=== PATIENT | female | born 1960 | race Caucasian/White ===

== ENCOUNTER 2017-01-14 03:22 | Emergency (ER) | payer BC ==
--- NOTE | ~2017-01-14 | CR21 ---
[facility] A Service of [facility] RADIOLOGY TEXT RESULTS PATIENT: ALEX DAMICO LOCATION: [facility] : 56 UNIT #: [id number] AGE: [address]: Jamison Joshua MD SEX: F ORDER DR: [id number] [facility] [address] [place], [place] [address] [id number] E MR#: [id number] Acc #: [id number] NAME: ALEX DAMICO : 1960 SEX: F STUDY DATE/TIME: 01/14/2017 2:43 UNIT: [facility] ROOM: STUDY DESCRIPTION: CR Ankle Min 3 Views Rt Attending Physician: Jamison Joshua M.D. Ordering Physician: Jamison Joshua M.D. Primary Care Physician: Primary Care Physician No MEDICAL IMAGING REPORT This report is preliminary unless electronic signature is present EXAM Right ankle INDICATIONS Fall with ankle injury today. FINDINGS 3 views of the right ankle were obtained. There is marked lateral soft tissue swelling and I believe there is a subtle transverse fracture through the distal fibula about 1 cm proximal to the end of the bone. The other bones are normal. IMPRESSION There is a subtle transverse fracture suggested through the distal fibula and there is overlying soft tissue swelling. Dictated by... Epifanio Stevens M.D. THIS IS AN ELECTRONICALLY VERIFIED REPORT Epifanio Stevens M.D. at 01/14/2017 9:54 PM ROSSANA/tamara TD: 01/14/2017 18:50 JOB #: [id number] MEDICAL IMAGING REPORT Page 1 of 1 COPY
== END 2017-01-14 03:56 | disposition home or self-care (01) ==
LOC: CED 03:22
DX: S82.831A Other fracture of upper and lower end of right fibula, initial encounter for closed fracture (principal); X50.1XXA Overexertion from prolonged static or awkward postures, initial encounter; Y92.009 Unspecified place in unspecified non-institutional (private) residence as the place of occurrence of the external cause
CPT/HCPCS: 29515; 73610; 99283